=== PATIENT | male | born 1965 | race Caucasian/White ===

== ENCOUNTER 2018-10-19 12:06 | Day surgery (SDC) | payer OTHER ==
[~2018-10-19] VITALS: Ht 180.3 cm; Wt 134.2 kg
[~2018-10-19 12:06] MED LIST: ASPI325 PO; ATOR10 PO; CARV25 PO; CHOL10002 PO; Calcium Citrat250 MG PO; FEBU40TA PO; FLUO10 PO; FURO40 PO; MAGOXI400 PO; MULTI VITAMIN1 EACH PO; MULVITB PO; Micro-K10 MEQ PO; Myfortic360 MG PO; PRED5 PO; Percocet 5-3251 EACH PO; Prinivil5 MG PO; Prozac20 MG PO; TACR1 PO; Uloric80 MG PO; Zofran Odt4 MG SL; Zofran Odt8 MG SL
== END 2018-10-19 15:02 | disposition home or self-care (01) ==
LOC: ORSCSDS 12:06
PROVIDERS: Student in an Organized Health Care Education/Training Program
PROC: 0DBP8ZX Excision of Rectum, Via Natural or Artificial Opening Endoscopic, Diagnostic (ICD-10-PCS; principal; 2018-10-19 13:30)
DX: Z12.11 Encounter for screening for malignant neoplasm of colon (principal); D12.8 Benign neoplasm of rectum; G47.33 Obstructive sleep apnea (adult) (pediatric); I12.9 Hypertensive chronic kidney disease with stage 1 through stage 4 chronic kidney disease, or unspecified chronic kidney disease; E10.22 Type 1 diabetes mellitus with diabetic chronic kidney disease; N18.6 End stage renal disease; Z94.0 Kidney transplant status; Z79.899 Other long term (current) drug therapy; Z79.82 Long term (current) use of aspirin; E66.01 Morbid (severe) obesity due to excess calories; Z68.41 Body mass index [BMI] 40.0-44.9, adult
CPT/HCPCS: 82947; 88305; J7120